=== PATIENT | male | born 1960 | race Caucasian/White ===

== ENCOUNTER 2022-06-06 09:15 | Outpatient (CLI) | payer MEDICARE, OTHER | END 2022-06-06 09:16 | disposition home or self-care (01) | LOC: CSHRAD 09:15 | PROVIDERS: ATTEND Family Medicine | DX: J44.9 Chronic obstructive pulmonary disease, unspecified (principal); M25.551 Pain in right hip; M16.11 Unilateral primary osteoarthritis, right hip | CPT/HCPCS: 71046; 72170 ==

== ENCOUNTER 2022-11-17 09:29 | Emergency (ER) | payer MEDICARE ==
[2022-11-17] MEDS ORDERED: Lidocaine 1% w/Epinephrine 1:200K 30 ML VIAL ONE (10:09)
== END 2022-11-17 11:53 | disposition home or self-care (01) ==
LOC: CSHERS 09:29
DX: L02.214 Cutaneous abscess of groin (principal); I10 Essential (primary) hypertension; F17.210 Nicotine dependence, cigarettes, uncomplicated; Z86.73 Personal history of transient ischemic attack (TIA), and cerebral infarction without residual deficits
CPT/HCPCS: 99282

== ENCOUNTER 2025-01-20 10:23 | Outpatient (CLI) | payer OTHER ==
[2025-01-20 11:10] LABS: Hematocrit 36.8 % (38.8-50.0); Hemoglobin 11.8 g/dL (13.5-17.5); Mean Corpuscular Hemoglobin 29.4 pg (27.0-33.0); Mean Corpuscular Volume 91.5 fL (81.2-95.1); Platelet Count 109 10x3/uL (150-450); Red Blood Cell (RBC) Count 4.02 10x6/uL (4.32-5.72); White Blood Cell (WBC) Count 9.73 10x3/uL (3.5-10.5)
[2025-01-20 11:11] LABS: Anion Gap 17 mmol/L (10-20); BUN (Urea Nitrogen) 20 mg/dL (8.4-25.7); Calc. Creatinine Clearance 0 mL/min (70-130); Calcium 8.9 mg/dL (7.8-10.44); Carbon Dioxide 21 mmol/L (23-31); Chloride 108 mmol/L (98-107); Glucose 172 mg/dL (80-115); Potassium 4.2 mmol/L (3.5-5.1); Sodium 142 mmol/L (136-145)
== END 2025-01-20 10:24 | disposition home or self-care (01) ==
LOC: CSHLAB 10:23
PROVIDERS: ATTEND Surgery
DX: Z01.818 Encounter for other preprocedural examination (principal); L98.9 Disorder of the skin and subcutaneous tissue, unspecified
CPT/HCPCS: 80048; 85027; 93005; 93010

== ENCOUNTER 2025-01-22 08:51 | Day surgery (SDC) | payer OTHER ==
[2025-01-20 10:40] VITALS: BMI 19.6
[2025-01-22] MEDS ORDERED: Bupivacaine HCl 0.5%/Epinephrine 1:200,000/PF 30 ml Vial ONE (10:47)
[2025-01-22] MEDS ORDERED: Ondansetron PF 4 MG/2 ML Vial ONE (11:06)
[2025-01-22] MEDS ORDERED: Lidocaine 1% PF 5 ML VIAL ONE ×2 (11:06→11:07)
[2025-01-22] MEDS ORDERED: PROPOFOL 20 ML ONE (11:06)
[2025-01-22] MEDS ORDERED: CEFAZOLIN 2 GM VIAL ONE (11:38)
[2025-01-22] MEDS ORDERED: HYDROmorphone 0.5 MG/0.5 ML SYRINGE ONE ×2 (13:23→14:02)
[2025-01-22] MEDS ORDERED: hydrALAZINE 20 MG/ML VIAL ONE (13:46)
[2025-01-22] MEDS ORDERED: HYDROcodone/Acetaminophen 5/325 mg Tablet ONE (14:45)
== END 2025-01-22 15:30 | disposition home or self-care (01) ==
LOC: CSHSDC 08:51
PROVIDERS: ATTEND Surgery
PROC: 0HRDX73 Replacement of Right Lower Arm Skin with Autologous Tissue Substitute, Full Thickness, External Approach (ICD-10-PCS; principal; 2025-01-22)
DX: C44.622 Squamous cell carcinoma of skin of right upper limb, including shoulder (principal); I10 Essential (primary) hypertension; F41.9 Anxiety disorder, unspecified; Z87.891 Personal history of nicotine dependence; Z79.899 Other long term (current) drug therapy
CPT/HCPCS: 11624; 15240; J0360; J1100; J1171; J2405; J2704; J3010; 88305